=== PATIENT | female | born 1955 | race Hispanic/Latino ===

== ENCOUNTER 2018-05-10 17:57 | Emergency (ER) | payer OTHER ==
[~2018-05-10] VITALS: Ht 165.1 cm; Wt 112.9 kg
[2018-05-10] MEDS ORDERED: CYCLOBENZAPRINE HCL 10 MG TAB PO ONE (18:15)
[2018-05-10] MEDS ORDERED: HYDROCODONE/APAP 10MG-325MG TAB PO ONE (18:15)
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
--- NOTE | 2018-05-10 19:43 | Diagnostic Imaging Report ---
EXAMINATION: Lumbar spine series. CLINICAL HISTORY: Low back pain COMPARISON: None. DISCUSSION: 3 views of the lumbar spine are submitted for interpretation. Five nonrib-bearing lumbar type vertebral bodies are identified. No acute, displaced fractures or subluxation. No spondylolisthesis. Spondylosis of the lumbar spine, with large osteophytes seen at L1-L2, L2-L3 and to a lesser degree L4-L5. Vertebral body heights are preserved. Sacroiliac joints are unremarkable. Pelvic phleboliths. Nonobstructive bowel gas pattern. Cholecystectomy clips. IMPRESSION: 1. No acute abnormalities. The staff physician below has personally reviewed this exam on the date of dictation. Signed by: Dr. Geovanny Martin M.D. on 05/10/2018 7:40 PM
[2018-05-10 22:08] VITALS: BP 161/92
== END 2018-05-10 22:20 | disposition home or self-care (01) ==
LOC: ER 17:57
DX: M54.2 Cervicalgia (principal); S00.83XA Contusion of other part of head, initial encounter; S16.1XXA Strain of muscle, fascia and tendon at neck level, initial encounter; M54.5 Low back pain; V43.52XA Car driver injured in collision with other type car in traffic accident, initial encounter; Y92.488 Other paved roadways as the place of occurrence of the external cause; I10 Essential (primary) hypertension; E11.9 Type 2 diabetes mellitus without complications; E78.5 Hyperlipidemia, unspecified
CPT/HCPCS: 70450; 72100; 72125; 99283